=== PATIENT | female | born 1990 | race Caucasian/White ===

== ENCOUNTER 2016-03-28 12:57 | Emergency (ER) | payer OTHER ==
[~2016-03-28] VITALS: Ht 152.4 cm; Wt 55.0 kg
[2016-03-28] MEDS ORDERED: LEVO75TA4 PO (13:11)
[2016-03-28] MEDS ORDERED: KETOROLAC TROMETHAMINE 60 MG/2 ML VIAL IM ONE (15:45)
[2016-03-28] MEDS ORDERED: METHOCARBAMOL 500 MG TABLET PO ONE (15:45)
[2016-03-28 16:35] VITALS: BP 112/83
== END 2016-03-28 16:56 | disposition home or self-care (01) ==
LOC: EMS 13:00
DX: S39.012A Strain of muscle, fascia and tendon of lower back, initial encounter (principal); E03.9 Hypothyroidism, unspecified; V49.88XA Car occupant (driver) (passenger) injured in other specified transport accidents, initial encounter; Y93.89 Activity, other specified; Y92.89 Other specified places as the place of occurrence of the external cause; Y99.8 Other external cause status
CPT/HCPCS: 96372; 99283; J1885